=== PATIENT | male | born 1965 | race Caucasian/White ===

== ENCOUNTER 2018-10-10 10:28 | Observation (INO) ==
[2018-10-10 11:11] LABS: Basophils # 0.1 K/mcL (0.0-0.2); Basophils % 1.3 %; Eosinophils # 0.2 K/mcL (0.0-0.6); Eosinophils % 3.3 %; Hematocrit 46.5 % (37.5-50.1); Hemoglobin 16.1 g/dL (12.9-16.9); Immature Granulocytes % 0.7 % (0-4); Lymphocytes # 1.4 K/mcL (0.6-4.6); Lymphocytes % 23.8 %; Mean Corpuscular HGB Conc 34.6 g/dL (31.6-35.5); Mean Corpuscular Hemoglobin 30.5 pg (28.0-33.3); Mean Corpuscular Volume 88.1 fL (83.0-100.0); Mean Platelet Volume 10.6 fL (9.4-12.4); Monocytes # 0.8 K/mcL (0.0-1.3); Monocytes % 12.7 %; Neutrophils # 3.5 K/mcL (1.6-8.9); Platelet Count 212 K/mcL (140-400); Red Blood Count 5.28 M/mcL (4.19-5.50); Red Cell Distribution Width 12.2 % (11.5-14.5); Segmented Neutrophils % 58.2 %
[2018-10-10 11:18] LABS: INR 2.4; Prothrombin Time 26.5 Seconds (9.4-12.1)
--- NOTE | 2018-10-10 11:27 | Emergency Department Note ---
Disposition Clinical Impression: Atrial fibrillation with RVR Chest pain Qualifiers: Chest pain type: unspecified Qualified Code(s): R07.9 - Chest pain, unspecified Disposition: Admitted As Inpatient Condition: Fair Referrals: Sebastian Ochoa DO [Primary Care Provider] - Forms: ED Satisfaction Letter Time of Disposition: 13:09 Chest Pain HPI - General Chief Complaint: ED Chest Pain Stated Complaint: chest pain Time Seen by Provider: 10/10/18 10:35 Source: patient, family Mode of arrival: ambulatory Limitations: no limitations Vital Signs Reviewed: Yes Nursing Notes Reviewed: Yes - History of Present Illness HPI Narrative: 53-year-old male with a history of A. fib, CAD on Eliquis present for evaluation of chest pain. Patient states chest pains or last night nonexertional with retrosternal discomfort. Patient denies any nausea vomiting. Patient states the patient has been short of breath as well as sweating. Patient denies any fevers or cough. Denies abdominal pain. Does have a history of pacemaker defibrillator in the past which was removed due to an infectious device at [facility]. Severity scale (1-10): 6 - Related Data Home Medications Medication Instructions Recorded Confirmed Buspirone HCl [Buspar] 10 mg PO BID 11/06/17 10/10/18 Digoxin [Lanoxin] 0.125 mg PO DAILY 11/06/17 10/10/18 Finasteride [Proscar] 5 mg PO DAILY 11/06/17 10/10/18 Fluticasone Propionate Nasal 2 spr NS BID 11/06/17 10/10/18 [Flonase] Lisinopril [Zestril] 5 mg PO DAILY 11/06/17 10/10/18 Nitroglycerin [Nitrostat] 0.4 mg SL Q5M PRN 11/06/17 10/10/18 Oxycodone HCl 15 mg PO Q6H 11/06/17 10/10/18 Phenytoin ER [Dilantin ER] 200 mg PO DAILY 11/06/17 10/10/18 Tamsulosin [Flomax] 0.4 mg PO DAILY 11/06/17 10/10/18 Triamcinolone Acet 0.1% CRM 1 appl TP QID 11/06/17 10/10/18 [Kenalog] Warfarin [Coumadin] 5 mg PO 1800 11/06/17 10/10/18 Pravastatin Sodium [Pravachol] 40 mg PO HS 01/05/18 10/10/18 Bumetanide [Bumex] 1 mg PO 3XW 02/03/18 10/10/18 Phenytoin Sodium Extended 300 mg PO HS 02/03/18 10/10/18 [Phenytek] Previous Rx's Medication Instructions Recorded Divalproex (12 HR) [Depakote (12 1,000 mg PO HS #30 tablet. 01/07/18 HR)] Divalproex (12 HR) [Depakote (12 500 mg PO QAM #30 tablet. 01/07/18 HR)] Allergies Allergy/AdvReac Type Severity Reaction Status Date / Time No Known Allergies Allergy Verified 03/10/18 16:50 All systems ED: reviewed and negative except as stated. Constitutional: Denies: fever Cardiovascular: Reports: chest pain, palpitations Respiratory: Reports: dyspnea. Denies: cough, sputum production Gastrointestinal: Denies: abdominal pain, nausea, vomiting Chest Pain PMH - Past Medical History Medical history: Reports: atrial fibrillation, cancer, CHF, hypertension, myocardial infarction, RA, seizures, TIA Surgical history: Reports: pacemaker/AICD, other Psychiatric history: Reports: depression - Social History Smoking Status: Former smoker Alcohol use: Reports: none Drug use: Reports: none Physical Exam - General Limitations: no limitations General appearance: alert, in no apparent distress - Head Head exam: atraumatic, normocephalic, normal inspection - Eye Eye exam: Present: normal appearance, PERRL, EOMI - ENT ENT exam: normal exam, normal oropharynx, mucous membranes moist - Neck Neck exam: Present: normal inspection, trachea midline - Chest Chest inspection: Present: normal inspection, symmetric chest wall rise - Respiratory Respiratory exam: Present: normal lung sounds bilaterally. Absent: respiratory distress - Cardiovascular Cardiovascular exam: Present: regular rate, normal rhythm. Absent: systolic murmur - Abdominal Exam Abdominal exam: Present: soft, Non-Tender - Extremities Exam Extremities exam: Present: normal inspection. Absent: pedal edema - Expanded Lower Extremity Exam Neurovascular/Tendon exam: Present: normal capillary refill - Back Exam Back exam: Present: normal inspection - Neurological Exam Neurological exam: Present: alert, oriented X3 - Skin Skin exam: Present: warm, dry, intact, normal color Course Course Narrative: Patient seen and examined upon arrival. Patient was noted be in A. fib RVR playing a chest pain. Patient does have known A. fib. Patient's properly anticoagulated per his history. Patient will get continuing cardiopulmonary evaluation with basic labs. Patient is on digoxin and dig levels be obtained. Disposition likely admission - Reevaluation(s) Reevaluation #1: Patient is complaining of chest heaviness. Will get a repeat EKG that her trial. Patient will be rate controlled with diltiazem bolus and then a drip. Time: 12:12 Reevaluation #2: Repeat EKG shows A. fib with a heart rate of 80. No ST elevation. Normal axis. T-wave inversions in aVL. LVH Time: 12:29 Reevaluation #3: Patient's resting comfortably. Updated on plan of care. Patient's on diltiazem drip at 5. Patient did have some labile pressures early on. Patient appears be resting more comfortably. Time: 12:36 Vital Signs Temperature 98.7 F 10/10/18 10:38 Pulse Rate 115 10/10/18 10:38 Respiratory Rate 20 10/10/18 10:38 Blood Pressure 136/77 10/10/18 10:38 O2 Sat by Pulse Oximetry 100 10/10/18 10:38 Temperature 98.7 F 10/10/18 10:38 Pulse Rate 83 10/10/18 12:32 Respiratory Rate 18 10/10/18 12:32 Blood Pressure 93/65 10/10/18 12:32 O2 Sat by Pulse Oximetry 94 10/10/18 12:32 Oxygen Delivery Oxygen Delivery Room Air Chest Pain - [facility] Narrative Medical decision making narrative: 53-year-old male with history of CAD presents for evaluation of chest pain. Patient does have known A. fib. Patient has been compliant with his medications. No chest pain over the past 24 hours. On exam the patient had A. fib RVR. Patient was given diltiazem placed on a drip. Patient's heart rate improved her the patient remained in A. fib. Patient was also given aspirin and nitroglycerin given his chest pain which did not significantly improve his symptoms. Patient did have some labile blood pressure during the ED course but is been stable. Patient's resting comfortably. Given the patient's abnormal presentation of chest pain as well as A. fib RVR the patient will be admitted to the hospital service for continued rate control cardiopulmonary management. Patient's symptoms are not consistent with a PE or dissection. - Lab Data Lab results reviewed: Yes I reviewed the patient's lab results. Result diagrams: 10/10/18 10:57 10/10/18 10:57 Lab Results 10/10/18 10/10/18 10/10/18 Range/Units 10:57 10:57 10:57 WBC 6.1 (4.3-11.1) K/mcL RBC 5.28 (4.19-5.50) M/mcL Hgb 16.1 (12.9-16.9) g/dL Hct 46.5 (37.5-50.1) % MCV 88.1 (83.0-100.0) fL MCH 30.5 (28.0-33.3) pg MCHC 34.6 (31.6-35.5) g/dL RDW 12.2 (11.5-14.5) % Plt Count 212 (140-400) K/mcL MPV 10.6 (9.4-12.4) fL Immature Gran % 0.7 (0-4) % Seg Neutrophils % 58.2 % Lymphocytes % 23.8 % Monocytes % 12.7 % Eosinophils % 3.3 % Basophils % 1.3 % Neutrophils # 3.5 (1.6-8.9) K/mcL Lymphocytes # 1.4 (0.6-4.6) K/mcL Monocytes # 0.8 (0.0-1.3) K/mcL Eosinophils # 0.2 (0.0-0.6) K/mcL Basophils # 0.1 (0.0-0.2) K/mcL PT 26.5 H (9.4-12.1) Seconds INR 2.4 Sodium 137 (136-145) mEq/L Potassium 4.2 (3.5-5.1) mEq/L Chloride 102 (98-107) mEq/L Carbon Dioxide 27 (23-29) mEq/L BUN 14 (6-20) mg/dL Creatinine 0.95 (0.70-1.30) mg/dL Est GFR ( Amer) > 60 (> 60) Est GFR (Non-Af Amer) > 60 (> 60) BUN/Creatinine Ratio 15 (6-26) Glucose 127 H (70-105) mg/dL Calculated Osmolality 286 (280-300) Calcium 9.8 (8.6-10.3) mg/dL Troponin I < 0.03 (< 0.04) ng/mL TSH 0.917 (0.340-5.600) mcIU/mL Digoxin 0.6 L (0.8-2.0) ng/mL - Radiology Data Radiology results reviewed: Yes I reviewed the patient's radiology results. Chest X-Ray 10/10/18 10:35 IMPRESSION: No acute process. D/ / 10/10/2018 12:16:13 Max Mckenzie MD / kristofer Interpreting Provider: Max Mckenzie MD - EKG Data EKG attestation: Yes I reviewed and interpreted this EKG. Rate: tachycardia Rhythm: A.Fib [place]/QRS: normal Interpretation: no acute changes, unchanged when compared to prior tracing (date) Heart Score - Score History: Moderately Suspicious EKG: Non Specific repolarisation Disturbance Age: 45-65 Risk Factors: Equal/Greater than 3 risk factor or history of atherosclerotic disease Troponin: Less than normal limit HEART Score Total: 5 S.B.A.RRaquel - Rosibel Situation: Demographics Background: Presenting Complaint Assessment: Vital Signs, Course and respsone to treatment, Patient/Family Expectation Recommendation: Barrier(s) to disposition, Recommendation based on pending studies, treatments, or consults S.B.AIla Report Given to: Dr. Salma Gleason Repor Time: 13:09
--- NOTE | 2018-10-10 11:28 | Emergency Department Note ---
Disposition Clinical Impression: Chest pain, Atrial fibrillation with RVR Disposition: Admitted As Inpatient Condition: Fair Referrals: Sebastian Ochoa DO [Primary Care Provider] - Forms: ED Satisfaction Letter General Adult HPI - General Chief complaint: ED Chest Pain Stated complaint: chest pain Time Seen by Provider: 10/10/18 10:35 Source: patient, family Limitations: no limitations Nursing Notes Reviewed: Yes Vital Signs Reviewed: Yes - History of Present Illness Pain Scale: 6 - Related Data Home Medications Medication Instructions Recorded Confirmed Buspirone HCl [Buspar] 10 mg PO BID 11/06/17 10/10/18 Digoxin [Lanoxin] 0.125 mg PO DAILY 11/06/17 10/10/18 Finasteride [Proscar] 5 mg PO DAILY 11/06/17 10/10/18 Fluticasone Propionate Nasal 2 spr NS BID 11/06/17 10/10/18 [Flonase] Lisinopril [Zestril] 5 mg PO DAILY 11/06/17 10/10/18 Nitroglycerin [Nitrostat] 0.4 mg SL Q5M PRN 11/06/17 10/10/18 Oxycodone HCl 15 mg PO Q6H 11/06/17 10/10/18 Phenytoin ER [Dilantin ER] 200 mg PO DAILY 11/06/17 10/10/18 Tamsulosin [Flomax] 0.4 mg PO DAILY 11/06/17 10/10/18 Triamcinolone Acet 0.1% CRM 1 appl TP QID 11/06/17 10/10/18 [Kenalog] Warfarin [Coumadin] 5 mg PO 1800 11/06/17 10/10/18 Pravastatin Sodium [Pravachol] 40 mg PO HS 01/05/18 10/10/18 Bumetanide [Bumex] 1 mg PO 3XW 02/03/18 10/10/18 Phenytoin Sodium Extended 300 mg PO HS 02/03/18 10/10/18 [Phenytek] Previous Rx's Medication Instructions Recorded Divalproex (12 HR) [Depakote (12 1,000 mg PO HS #30 tablet. 01/07/18 HR)] Divalproex (12 HR) [Depakote (12 500 mg PO QAM #30 tablet. 01/07/18 HR)] Allergies Allergy/AdvReac Type Severity Reaction Status Date / Time No Known Allergies Allergy Verified 03/10/18 16:50 Past Medical History - Past Medical History Medical history: Reports: atrial fibrillation, cancer, CHF, hypertension, myocardial infarction, RA, seizures, TIA Surgical history: Reports: pacemaker/AICD, other Psychiatric history: Reports: depression - Social History Smoking Status: Former smoker Smokeless Tobacco Status: No Alcohol use: Reports: none Drug use: Reports: none Physical Exam - General Limitations: no limitations General appearance: alert, in no apparent distress Course Vital Signs Temperature 98.7 F 10/10/18 10:38 Pulse Rate 115 10/10/18 10:38 Respiratory Rate 20 10/10/18 10:38 Blood Pressure 136/77 10/10/18 10:38 O2 Sat by Pulse Oximetry 100 10/10/18 10:38 Temperature 98.7 F 10/10/18 10:38 Pulse Rate 83 10/10/18 12:32 Respiratory Rate 18 10/10/18 12:32 Blood Pressure 93/65 10/10/18 12:32 O2 Sat by Pulse Oximetry 94 10/10/18 12:32 Oxygen Delivery Oxygen Delivery Room Air Medical Decision Making - MDM Narrative Medical decision making narrative: Chest X-Ray 10/10/18 10:35 IMPRESSION: No acute process. D/ / 10/10/2018 12:16:13 Max Mckenzie MD / kristofer Interpreting Provider: Max Mckenzie MD 1220 hrs.: Patient's currently getting Cardizem. He started having chest pressure and that occurred. He did not drop his heart rate or his blood pressure. We gave him repeat EKG no signs of ischemia. Heart rates down the 90s now's. We will speak with cardiology with him and rule him out for ACS also. He will need to come in regardless with the A. fib RVR. 1252 hrs.: Patient's heart rates in the 90s he is doing better at this time. Troponins negative for going to admitted to hospitalist service. He is in agreement with plan. A. fib with RVR improved with Cardizem and chest pain rule out ACS. - Lab Data Result diagrams: 10/10/18 10:57 10/10/18 10:57 Lab Results 10/10/18 10/10/18 10/10/18 Range/Units 10:57 10:57 10:57 WBC 6.1 (4.3-11.1) K/mcL RBC 5.28 (4.19-5.50) M/mcL Hgb 16.1 (12.9-16.9) g/dL Hct 46.5 (37.5-50.1) % MCV 88.1 (83.0-100.0) fL MCH 30.5 (28.0-33.3) pg MCHC 34.6 (31.6-35.5) g/dL RDW 12.2 (11.5-14.5) % Plt Count 212 (140-400) K/mcL MPV 10.6 (9.4-12.4) fL Immature Gran % 0.7 (0-4) % Seg Neutrophils % 58.2 % Lymphocytes % 23.8 % Monocytes % 12.7 % Eosinophils % 3.3 % Basophils % 1.3 % Neutrophils # 3.5 (1.6-8.9) K/mcL Lymphocytes # 1.4 (0.6-4.6) K/mcL Monocytes # 0.8 (0.0-1.3) K/mcL Eosinophils # 0.2 (0.0-0.6) K/mcL Basophils # 0.1 (0.0-0.2) K/mcL PT 26.5 H (9.4-12.1) Seconds INR 2.4 Sodium 137 (136-145) mEq/L Potassium 4.2 (3.5-5.1) mEq/L Chloride 102 (98-107) mEq/L Carbon Dioxide 27 (23-29) mEq/L BUN 14 (6-20) mg/dL Creatinine 0.95 (0.70-1.30) mg/dL Est GFR ( Amer) > 60 (> 60) Est GFR (Non-Af Amer) > 60 (> 60) BUN/Creatinine Ratio 15 (6-26) Glucose 127 H (70-105) mg/dL Calculated Osmolality 286 (280-300) Calcium 9.8 (8.6-10.3) mg/dL Troponin I < 0.03 (< 0.04) ng/mL TSH 0.917 (0.340-5.600) mcIU/mL Digoxin 0.6 L (0.8-2.0) ng/mL Critical Care Time Critical Care Time: Yes Total Critical Care Time: 40 Attestation: Excluding any separately billable procedures. Attestation Statement - Attestation Attestation: This documentation is done with the assistance of Dragon dictation. Despite efforts made to ensure accuracy, there may be inaccuracies in blanchard grinder operator or spelling and typographical errors. I examined this patient and my medical decision-making was reviewed with the Resident Physician. I agree with the documented findings, disposition and treatment plan as described except to the extent set forth below. Patient seen and evaluated on arrival by Dr. Parkinson and myself, agree with her evaluation management plan supervised the care the patient's stay. Patient's a history of atrial fibrillation came in today with rapid heart beat this note on today. On monitor shows an atrial fibrillation again. He is currently on did she is not on a calcium channel polo beta polo so we will go ahead and start that today to workup and then discuss admission with him. He is in agreement with plan.
[2018-10-10] MEDS: Nitroglycerin 0.4 MG TAB.SUBL SL PRN ×2 (11:54→11:59)
[2018-10-10] MEDS: 0.9 % Sodium Chloride 1,000 ML IVC SCH ×2 (11:55→16:39)
[2018-10-10 11:56] LABS: BUN/Creatinine Ratio 15 (6-26); Blood Urea Nitrogen 14 mg/dL (6-20); Calcium 9.8 mg/dL (8.6-10.3); Carbon Dioxide 27 mEq/L (23-29); Chloride 102 mEq/L (98-107); Glucose 127 mg/dL (70-105); Osmolality,Calculated 286 (280-300); Potassium 4.2 mEq/L (3.5-5.1); Sodium 137 mEq/L (136-145); eGFR For Non-African Americans > 60 (> 60)
[2018-10-10 11:57] LABS: Thyroid Stimulating Hormone 0.917 mcIU/mL (0.340-5.600); Troponin I < 0.03 ng/mL (< 0.04)
[2018-10-10] MEDS ORDERED: Ondansetron 4 MG/2 ML VIAL ONE (12:09)
[2018-10-10 12:27] LABS: Digoxin 0.6 ng/mL (0.8-2.0)
[2018-10-10] MEDS ORDERED: 0.9 % Sodium Chloride 1,000 ML IVC ONE (12:28)
--- NOTE | 2018-10-10 16:12 | Internal Med History&Physical ---
Date of Encounter: 10/10/18 Time of Encounter: 16:00 Internal Medicine - H&P: HPI Chief complaint: chest pain Admitted From: Emergency Dept Plans for Post Hospital Care: Home History of present illness: Mr. Welch is a 53 year old male with history of A. fib, CAD, currently takes Eliquis at home. Home medications also include digoxin. And dig levels was completed in the emergency room and found to be low at 0.6. Gives history of having a pacemaker defibrillator removed earlier this year due to nonfunctioning at [facility]. States that they placed a defibrillator into the left lateral chest wall. He reports frequent episodes of A. fib and palpitations since having the defibrillator pacemaker removed. He gives a history of acute onset of chest pain that he described as mid chest pressure. Associated symptoms was nausea without vomiting dizziness, weakness. . States that the pressure and heaviness. At 2 AM, it was a sharp pain at that time nonradiating lasting 3-4 minutes. States he also had a recurrent chest pain and pressure at 3:30 AM that both dull in nature aching, and a third episode at 4:30 this morning, that was all an aching states that last episode was in the emergency room. Upon arrival to ED EKG was positive for A. fib with RVR, he was started on a Cardizem drip at 5 mg per hour. Second EKG was elevaluted in ED and shows A. Fiv with HR of 80, NO ST elevation, Normal azis, T-wave invrsions in aVL. LVH. Troponin was negative x 1 CXR negative for acute process Patient is interview in hospital room, resting quietly and talking with family. He denies chest pain, N/V, shortness of breath, dizziness, headache, or other discomforts at this time. Patient continues at the present time to have A. fib. per telemetry, Review of VS reveals hypotension with b/p trending down to current rate of 93/61, with 64 pulse. Spo2 @RA 96 %. -. will give one time dose of Cardizem po 30 mg , -repeat vs, in 1 hour, and attempt to wean off Cardizem drip. -If successful will give po cardiazem 30 mg q8h. Patient is admitted to observation unit -continue with telemetry, -vs q4 h -Cardiology consult - NTG 0,4 sl prn - NS 0.9% IV NS @ 125 ml /hr continuously -Trend toponin x 3 -Obtain daily labs, and monitor CMP, CBC, - Heparin SQ bid DVT prophylaxis -oxygen for SPO2 < 95 % @2 lpm/nc Past Med Surg Social Fam HX - Past Medical History Medical history: atrial fibrillation, cancer, CHF, hypertension, myocardial infarction, RA, seizures, TIA Additional medical history: ICD, (cancerious polyps) Psychiatric history: depression - Past Surgical History Surgical History: pacemaker/AICD, other Additional surgical history: colonoscopy 10/2017 w/ polyp removal, abdominal cyst removal, thoracotomy, pericardial window, septal repair, tonsillectomy - Social History Smoking Status: Former smoker Smokeless Tobacco Status: No Alcohol use: none Drug use: none - Family History Father Hx Family Cardiac Disorders: Yes Hx Family Cancer: Yes Mother Hx Family Cancer: Yes Brother Living Status: Hx Family Cardiac Disorders: Yes ([place]) Internal Medicine - H&P: Meds Buspirone HCl [Buspar] 10 mg PO BID 11/06/17 [History] Digoxin [Lanoxin] 0.125 mg PO DAILY 11/06/17 [History] Finasteride [Proscar] 5 mg PO DAILY 11/06/17 [History] Fluticasone Propionate Nasal [Flonase] 2 spr NS BID 11/06/17 [History] Lisinopril [Zestril] 5 mg PO DAILY 11/06/17 [History] Nitroglycerin [Nitrostat] 0.4 mg SL Q5M PRN 11/06/17 [History] Oxycodone HCl 15 mg PO Q6H 11/06/17 [History] Phenytoin ER [Dilantin ER] 200 mg PO DAILY 11/06/17 [History] Tamsulosin [Flomax] 0.4 mg PO DAILY 11/06/17 [History] Triamcinolone Acet 0.1% CRM [Kenalog] 1 appl TP QID 11/06/17 [History] Warfarin [Coumadin] 5 mg PO 1800 11/06/17 [History] Pravastatin Sodium [Pravachol] 40 mg PO HS 01/05/18 [History] Divalproex (12 HR) [Depakote (12 HR)] 1,000 mg PO HS #30 tablet. 01/07/18 [Rx] Divalproex (12 HR) [Depakote (12 HR)] 500 mg PO QAM #30 tablet. 01/07/18 [Rx] Bumetanide [Bumex] 1 mg PO 3XW 02/03/18 [History] Phenytoin Sodium Extended [Phenytek] 300 mg PO HS 02/03/18 [History] Allergy/AdvReac Type Severity Reaction Status Date / Time No Known Allergies Allergy Verified 03/10/18 16:50 All Systems PM: A 10-system review of systems was performed and is negative for pertinent findings except as documented above in the HPI. Review of systems: denies chest pain , shortness of breath, N/V, dizziness - Constitutional Constitutional: as per HPI - EENT Eyes: as per HPI - Cardiovascular Cardiovascular ROS IM: irregular heart rhythm, palpitations - Respiratory Respiratory: no cough, no dyspnea, no wheezing, no excessive phlegm production - Gastrointestinal Gastrointestinal: no abdominal pain, no diarrhea, no hematemesis, no hematochezia, no melena, no nausea, no vomiting - Genitourinary Genitourinary ROS male: as per HPI - Musculoskeletal Musculoskeletal ROS IM: no numbness, no tingling - Integumentary Integumentary IM: no rash, no unusual bruising Additional comments: has implanted defibrillator left lateral rib area , box like, approx 3 inches in length, x 2 inches wide , tender with palp - Neurological Neurological ROS: no confusion, no convulsions, no focal weakness, no numbness, no tingling, no tremor(s) - Psychiatric Psychiatric: as per HPI - Endocrine Endocrine IM: as per HPI - Hematologic/Lymphatic Hematologic/Lymphatic: no easy bruising - Allergic/Immunologic Allergic/Immunologic: as per HPI - Constitutional Vitals: Temp Pulse Resp BP Pulse Ox 98.1 F 64 18 93/61 96 10/10/18 14:53 10/10/18 14:53 10/10/18 14:53 10/10/18 14:53 10/10/18 14:53 Exam: mild hypotension with b/p 93/61, pulse 64, irregular, Telemetry continues with A. Fib one time Cardizem 30 mg recheck in 1 hour May attempt to wean off Cardizem drip start on Cardizem 30 mg q8h po - Head Head exam: Present: atraumatic, normal inspection, normocephalic - Eye Eye exam: Present: PERRL, conjuntiva pink, sclera anicteric Pupils: Present: PERRL - Neck Neck exam general surgery: Present: supple, trachea midline. Absent: lymphadenopathy - Respiratory Respiratory exam: Present: CTAB. Absent: accessory muscle use, rales, rhonchi, wheezes - Cardiovascular Cardiovascular exam: Present: bradycardia, irregular rhythm, RRR, +S1, +S2. Absent: diastolic murmur, gallop, rubs, systolic murmur Additional comments: irregular regular rhythm - GI/Abdominal GI/Abdominal exam: Present: normal bowel sounds, soft, no peritoneal signs. Absent: distended, tenderness - Extremities Exam Extremities exam: Present: warm, radial pulses palpable and symmetrical. A bsent: calf tenderness, cyanotic, pedal edema - Neurological Exam Neurological exam: Present: alert, CN II-XII intact, normal gait, oriented X3, reflexes normal, no focal deficits. Absent: pronater drift, facial droop, speech deficit - Skin Skin exam: Present: dry, intact Additional comments: small defebulator located lateral left mid rib area Internal Med - H&P Results - Labs CBC & Chem 7: 10/10/18 10:57 10/10/18 10:57 Labs: Short CBC 10/10/18 Range/Units 10:57 WBC 6.1 (4.3-11.1) K/mcL Hgb 16.1 (12.9-16.9) g/dL Hct 46.5 (37.5-50.1) % Plt Count 212 (140-400) K/mcL Neutrophils # 3.5 (1.6-8.9) K/mcL BMP 10/10/18 10:57 Sodium 137 Potassium 4.2 Chloride 102 Carbon Dioxide 27 BUN 14 Creatinine 0.95 Glucose 127 H Calcium 9.8 Cardiac Enzymes 10/10/18 Range/Units 10:57 Troponin I < 0.03 (< 0.04) ng/mL - Pulse Oximetry Interpretation Digit-Finger O2 Sat by Pulse Oximetry: 96 Actions taken: none - Impressions ITS Impressions Chest X-Ray 10/10/18 10:35 IMPRESSION: No acute process. D/ / 10/10/2018 12:16:13 Max Mckenzie MD / kristofer Interpreting Provider: Max Mckenzie MD - Assessment and plan (1) Chest pain Current Visit: Yes Status: Acute Assessment and plan: Patient gives a history of pain and "colon at 2 AM this past night with midsternal chest pressure and heaviness nonradiating, stated last 3-4 minutes sharp in nature. Rated symptoms was nausea without vomiting, dizziness, weakness. He further stated that he had 2 more episodes of the same type of rome n lasting approximately 3-4 minutes however the second and third episodes were Edinson achy in nature as well as heavy midsternal, this occurred at 3:30 AM and 4:30 AM Admitted to observation unit chest pain rule out ACS Serial troponins 2 Obtain CMP, CBC daily Continue pta vital signs every 4 hours 24 hours up ad gurinder. Cardiac diet Continue home medications DVT prophylaxis with heparin 5000 units every 12 hours subcutaneous Maintain IV site with 0.9% sodium IV at her 25 MLS/HR Attempt to wean off dilatation exam drip due to hypotension Give 30 mg by mouth 1 cardiac exam, repeat vital signs in one hour if possible wean off the cardiac exam drip and start cardiac exam by mouth 30 mg every 8 hour Cardiology consult . Qualifiers: Chest pain type: precordial pain Qualified Code(s): R07.2 - Precordial pain (2) Atrial fibrillation with RVR Current Visit: Yes Status: Acute Assessment and plan: Patient states that he has history of atrial fib and at one point had a implantable defibrillator pacemaker however this was moved due to infection at [facility] earlier this year. States now he has a defibrillator only in place and since that time he has had palpitations with occasional chest pain. EKG upon admission to the emergency room did show A. fib with RVR, he was started on cardiac exam drip at 5 mg/h. He was noted to have hypotension when he was assessed on the observation floor. One-time dose of cardiac exam by mouth 30 mg was given repeat vital signs and one hour O temp wean off the cardia see him drip, start on 30 mg of the cardia see him by mouth every 8 hour. We will continue to monitor telemetry continuously and vital signs every 4 hour, we will trend serial troponins and cardiac consult, obtain 2 d echo , and cardiac stress test (3) DVT prophylaxis Current Visit: Yes Status: Acute Assessment and plan: Per protocol patient is up ad gurinder. in the hallway, and in the room. Heparin subcutaneous 5000 units every 12 hours, and will give BEN was - Time Spent With Patient Total time spent is greater than 50% in coordination of care (as documented) at patient's floor/unit and/or counseling patient: less than 15 minutes
[2018-10-10] MEDS ORDERED: *HR* Heparin 5,000 UNIT/ML VIAL SQ SCH (18:00)
[2018-10-10] MEDS: Divalproex (12 HR) 500 MG TABLET PO SCH (20:26)
[2018-10-10] MEDS ORDERED: NON-FORMULARY MEDICATION 1 EACH EACH (Buspirone Hcl [Buspar] 10 MG) PO SCH (21:00)
[2018-10-10] MEDS ORDERED: *HR* OxyCODONE Immed Rel 15 MG TABLET PO ONE (23:16)
[2018-10-11] MEDS: 0.9 % Sodium Chloride 1,000 ML IVC SCH ×2 (00:57→08:17)
[2018-10-11 04:21] LABS: Basophils # 0.1 K/mcL (0.0-0.2); Basophils % 1.2 %; Eosinophils # 0.2 K/mcL (0.0-0.6); Eosinophils % 2.7 %; Immature Granulocytes % 0.8 % (0-4); Lymphocytes # 2.2 K/mcL (0.6-4.6); Lymphocytes % 37.3 %; Mean Corpuscular HGB Conc 34.7 g/dL (31.6-35.5); Mean Corpuscular Hemoglobin 30.4 pg (28.0-33.3); Mean Corpuscular Volume 87.6 fL (83.0-100.0); Mean Platelet Volume 10.7 fL (9.4-12.4); Monocytes # 0.6 K/mcL (0.0-1.3); Monocytes % 10.4 %; Neutrophils # 2.8 K/mcL (1.6-8.9); Platelet Count 156 K/mcL (140-400); Red Blood Count 4.34 M/mcL (4.19-5.50); Red Cell Distribution Width 12.5 % (11.5-14.5); Segmented Neutrophils % 47.6 %
[2018-10-11 04:36] LABS: Hemoglobin 13.2 g/dL (12.9-16.9)
[2018-10-11 04:38] LABS: BUN/Creatinine Ratio 19 (6-26); Blood Urea Nitrogen 16 mg/dL (6-20); Calcium 8.5 mg/dL (8.6-10.3); Carbon Dioxide 25 mEq/L (23-29); Chloride 107 mEq/L (98-107); Glucose 111 mg/dL (70-105); Osmolality,Calculated 290 (280-300); Potassium 4.2 mEq/L (3.5-5.1); Sodium 139 mEq/L (136-145); eGFR For Non-African Americans > 60 (> 60)
[2018-10-11] MEDS: levETIRAcetam 250 MG TABLET PO SCH ×2 (05:02→17:31)
[2018-10-11] MEDS: Finasteride 5 MG TABLET PO SCH (08:07)
[2018-10-11] MEDS: Divalproex (12 HR) 500 MG TABLET PO SCH ×2 (08:08→21:42)
[2018-10-11] MEDS ORDERED: *HR* Digoxin 0.125 MG TABLET PO SCH ×2 (09:00)
[2018-10-11 09:41] LABS: INR 3.1; Prothrombin Time 35.4 Seconds (9.4-12.1)
--- NOTE | 2018-10-11 12:12 | Internal Med Progress Note ---
<Miguel Ortiz - Last Filed: 10/11/18 11:57> Hospitalist Progress Note - Encounter Date of Encounter: 10/11/18 Time of Encounter: 11:57 - Subjective Interval History: 52-year-old male admitted for chest pain. Patient was found to have been in A. fib RVR and started on Cardizem drip which has not been transition to by mouth Cardizem. Patient also reported that his chest pain resolved once A. fib RVR has resolved. Currently he denies shortness of breath, bowel pain, lower extremity edema. - Exam Vitals: Temp Pulse Resp BP Pulse Ox 98.5 F 63 16 128/76 98 10/11/18 11:44 10/11/18 11:44 10/11/18 11:44 10/11/18 11:44 10/11/18 11:44 Exam: General: pleasant, without distress Cardiovascualr: Regular rate and rhythm with no murmur, absent gallops or rubs, absent pedal edema, radial pulses 2 out of 4 Lungs: Clear to auscultation bilaterally, not in respiratory distress Abdomen: Soft nontender, nondistended positive bowel sounds, absent hepatomegaly Skin: warm and dry, absent rash, absent open wounds and nodules MSK: absent clubbing, cyanosis, joints without swelling Neuro: Alert oriented 3 Psych: good insight and judgment - Assessment and Plan (1) Chest pain Current Visit: Yes Status: Resolved Assessment and Plan: Patient had atypical chest pain Discharge report this is similar to his previous chest pain when he had ACS This was in the setting of A. fib RVR Chest pain resolved after A. fib RVR resolved. Troponin are negative 2 Echocardiogram shows LVEF of 50% with low normal systolic function, mild concentric left ventricular hypertrophy, normal left ventricular diastolic function, and we will right ventricular structure and function, no significant valve dysfunction, no pulmonary hypertension. Chest x-ray is negative EKG on admission showed atrial fibrillation with RVR without ST elevation or depression, LVH. Patient is also on warfarin therapeutic at INR of 2.1 Plan: Continue warfarin, statin, fenofibrate, coreg. stop diltiazem. Cardiology was consulted and appreciate recommendations. (2) DVT prophylaxis Current Visit: Yes Status: Acute Assessment and Plan: warfarin (3) Atrial fibrillation with RVR Current Visit: Yes Status: Resolved Assessment and Plan: now in Sinus rhythm continue coreg and warfarin (4) HTN (hypertension) Current Visit: Yes Status: Chronic Assessment and Plan: controlled continue lisinopril (5) Systolic CHF Current Visit: Yes Status: Chronic Assessment and Plan: History of systolic congestive heart failure Patient is not an exacerbation We will continue lisinopril, Bumex, digoxin. (6) History of seizure Current Visit: Yes Status: Chronic Assessment and Plan: Patient has a history of seizures We will continue Keppra and Depakote. (7) Nonischemic cardiomyopathy Current Visit: Yes Status: Chronic Assessment and Plan: Patient has history of nonischemic cardiomyopathy unclear etiology Reviewed ECW Patient has COMPUTER PROGRAMMER CHIEF-D removed due to infection and has a AICD placed on the left lateral chest wall. He is euvolemic and will continue statin, beta polo, lisinopril, Bumex. - Time Spent with Patient Total time spent is greater than 50% in coordination of care (as documented) at patient's floor/unit and/or counseling patient: Internal Medicine: Result - Labs CBC & Chem 7: 10/11/18 03:56 10/11/18 03:56 Labs: Short CBC 10/11/18 Range/Units 03:56 WBC 6.0 (4.3-11.1) K/mcL Hgb 13.2 D (12.9-16.9) g/dL Hct 38.0 (37.5-50.1) % Plt Count 156 (140-400) K/mcL Neutrophils # 2.8 (1.6-8.9) K/mcL BMP 10/10/18 10/11/18 10:57 03:56 Sodium 137 139 Potassium 4.2 4.2 Chloride 102 107 Carbon Dioxide 27 25 BUN 14 16 Creatinine 0.95 0.86 Glucose 127 H 111 H Calcium 9.8 8.5 L Cardiac Enzymes 10/10/18 10/10/18 Range/Units 10:57 17:36 Troponin I < 0.03 < 0.03 (< 0.04) ng/mL - ABG Interpretation ABG results: PT/INR, D-dimer PT 35.4 Seconds (9.4-12.1) H 10/11/18 09:21 - Impressions Impressions Chest X-Ray 10/10/18 10:35 IMPRESSION: No acute process. D/ / 10/10/2018 12:16:13 Max Mckenzie MD / kristofer Interpreting Provider: Max Mckenzie MD Echocardiogram 10/11/18 09:00 Impressions: LVEF 50%. Low normal systolic function. Mild concentric left ventricular hypertrophy. Normal left ventricular diastolic function. Normal right ventricular structure and function. No significant valvular dysfunction. No pulmonary hypertension. Left Ventricular Wall Motion: Rest Echo Findings All wall segments showed normal motion. Findings: Study Quality * Technically adequate exam. ECG Findings * Normal sinus rhythm. Left Ventricle * LVEF 50%. Low normal systolic function. * Normal LV chamber size and function. * Mild concentric left ventricular hypertrophy. * Normal left ventricular diastolic function. Right Ventricle * Normal right ventricular structure and function. Left Atrium * Normal left atrial size. Right Atrium * Normal right atrial size. Interatrial Septum * Interatrial septum not well evaluated. * No evidence of PFO by color Doppler. Aortic Valve * Aortic valve not well visualized. * No aortic stenosis. * No aortic regurgitation. Mitral Valve * Normal mitral valve structure. * No mitral stenosis. * Trace mitral regurgitation. Tricuspid Valve * Normal tricuspid valve structure. * No tricuspid stenosis. * Trace tricuspid regurgitation. * Estimated RVSP is 28 mmHg. * Estimated RA pressure is 3 mmHg. * No pulmonary hypertension. Pulmonic Valve * Pulmonic valve is not well visualized. * No pulmonic stenosis. * No pulmonic regurgitation. Aorta * Normally sized aortic root. Pericardium * The pericardium appears normal. IVC * Normal IVC dimensions and inspiratory collapse. Device lead * A device lead was visualized in the right atrium and right ventricle. Consult Discharge Plan - Plan Referrals: Sebastian Ochoa DO [Primary Care Provider] - <Debbie Norris - Last Filed: 10/11/18 14:42> Hospitalist Progress Note - Encounter Date of Encounter: 10/11/18 - Exam Vitals: Temp Pulse Resp BP Pulse Ox 98.5 F 63 16 128/76 98 10/11/18 11:44 10/11/18 11:44 10/11/18 11:44 10/11/18 11:44 10/11/18 11:44 - Assessment and Plan (1) History of seizure Current Visit: Yes Status: Chronic (2) HTN (hypertension) Current Visit: Yes Status: Chronic (3) DVT prophylaxis Current Visit: Yes Status: Acute (4) Systolic CHF Current Visit: Yes Status: Chronic (5) Chest pain Current Visit: Yes Status: Resolved (6) Atrial fibrillation with RVR Current Visit: Yes Status: Resolved (7) Nonischemic cardiomyopathy Current Visit: Yes Status: Chronic - Time Spent with Patient Total time spent is greater than 50% in coordination of care (as documented) at patient's floor/unit and/or counseling patient: Internal Medicine: Result - Labs CBC & Chem 7: 10/11/18 03:56 10/11/18 03:56 Labs: Short CBC 10/11/18 Range/Units 03:56 WBC 6.0 (4.3-11.1) K/mcL Hgb 13.2 D (12.9-16.9) g/dL Hct 38.0 (37.5-50.1) % Plt Count 156 (140-400) K/mcL Neutrophils # 2.8 (1.6-8.9) K/mcL BMP 10/11/18 03:56 Sodium 139 Potassium 4.2 Chloride 107 Carbon Dioxide 25 BUN 16 Creatinine 0.86 Glucose 111 H Calcium 8.5 L Cardiac Enzymes 10/10/18 Range/Units 17:36 Troponin I < 0.03 (< 0.04) ng/mL - ABG Interpretation ABG results: PT/INR, D-dimer PT 35.4 Seconds (9.4-12.1) H 10/11/18 09:21 - Impressions Impressions Echocardiogram 10/11/18 09:00 Impressions: LVEF 50%. Low normal systolic function. Mild concentric left ventricular hypertrophy. Normal left ventricular diastolic function. Normal right ventricular structure and function. No significant valvular dysfunction. No pulmonary hypertension. Left Ventricular Wall Motion: Rest Echo Findings All wall segments showed normal motion. Findings: Study Quality * Technically adequate exam. ECG Findings * Normal sinus rhythm. Left Ventricle * LVEF 50%. Low normal systolic function. * Normal LV chamber size and function. * Mild concentric left ventricular hypertrophy. * Normal left ventricular diastolic function. Right Ventricle * Normal right ventricular structure and function. Left Atrium * Normal left atrial size. Right Atrium * Normal right atrial size. Interatrial Septum * Interatrial septum not well evaluated. * No evidence of PFO by color Doppler. Aortic Valve * Aortic valve not well visualized. * No aortic stenosis. * No aortic regurgitation. Mitral Valve * Normal mitral valve structure. * No mitral stenosis. * Trace mitral regurgitation. Tricuspid Valve * Normal tricuspid valve structure. * No tricuspid stenosis. * Trace tricuspid regurgitation. * Estimated RVSP is 28 mmHg. * Estimated RA pressure is 3 mmHg. * No pulmonary hypertension. Pulmonic Valve * Pulmonic valve is not well visualized. * No pulmonic stenosis. * No pulmonic regurgitation. Aorta * Normally sized aortic root. Pericardium * The pericardium appears normal. IVC * Normal IVC dimensions and inspiratory collapse. Device lead * A device lead was visualized in the right atrium and right ventricle. - Attending Attestation I examined this patient and my medical decision-making was reviewed with the Resident Physician Dr Ortiz. I agree with the documented findings, disposition and treatment plan as described except to the extent set forth below. Assumed care of patient 10/11/18 Mr Welch is being observed for episode afib rvr with associated chest pain, now both resolved with medication adjustments awake, alert, very pleasant and excellect historian. He has no cp and has had none or chest pressure with resolution of afib rvr. no palpitations, presyncope, sob, orthopnea or le edema. He was able to confirm all meds he is currently taking. awaiting cards eval. overall feeling improved gen- alert, awake,appears stated age cv- reg rate and rhythm, normal s1,s2, no murmurs appreciated, no jvd, no le edema lungs- ctabl, no wheezing, rhonchi or crackles, normal resp effort on ra neuro- AAOx3 Afib with RVR, resolved; now NSR- started on ccb gtt and transitioned ot oral by prior team, we have stopped this and resumed home coreg, uptitrate as needed, cont digoxin, coumadin (NOT eliquis as noted in h&P), cards eval pending as he follows with Dr Osorio CAD, stable Chronic systolic + Diastolic CHF,stable -not on asa at home (already dual therapy with coumadin + plavix), cont plavix, statin, BB, acei and bumex qMWF as he takes at home Seizure Hx- confirmed no longer taking phenytoin as listed in home meds, changed by Neuro (Dr Klein) to keppra + depakote further diagnoses and plan as noted by resident <Miguel Ortiz - Last Filed: 10/11/18 11:57> (1) Chest pain Qualifiers: Chest pain type: precordial pain Qualified Code(s): R07.2 - Precordial pain (4) HTN (hypertension) Qualifiers: Hypertension type: essential hypertension Qualified Code(s): I10 - Essential (primary) hypertension (5) Systolic CHF Qualifiers: Heart failure chronicity: chronic Qualified Code(s): I50.22 - Chronic systolic (congestive) heart failure <Debbie Norris - Last Filed: 10/11/18 14:42> (2) HTN (hypertension) Qualifiers: Hypertension type: essential hypertension Qualified Code(s): I10 - Essential (primary) hypertension (4) Systolic CHF Qualifiers: Heart failure chronicity: chronic Qualified Code(s): I50.22 - Chronic systolic (congestive) heart failure (5) Chest pain Qualifiers: Chest pain type: precordial pain Qualified Code(s): R07.2 - Precordial pain
[2018-10-11] MEDS: *HR* OxyCODONE Immed Rel 15 MG TABLET PO PRN ×2 (12:14→21:49)
--- NOTE | 2018-10-11 16:53 | Event Note ---
Date of Encounter: 10/11/18 Time of Encounter: 16:51 - Cardiology Event Note Attempted to see patient, however patient was in the shower. Chart reviewed. Cardiology consulted for a.fib RVR and chest pain. Per notes, chest pain resolved after resolution of a.fib RVR. Patient has known a.fib, on BB, digoxin, and coumadin at home. Pateint was started on cardizem drip. Patient has a known history of NICM, then recovered LVEF. With history of NICM, would not recommend CCB mcc. Discussed and reviewed with , who recommends stopping digoxin and increasing BB. Continue coumadin. Cardiology will attempt to see patient in am.
[2018-10-11] MEDS ORDERED: Warfarin perPT PO PRN (18:00)
[2018-10-11] MEDS ORDERED: *HR* Warfarin 5 MG TABLET PO ONE (18:00)
[2018-10-12] MEDS: levETIRAcetam 250 MG TABLET PO SCH (05:30)
[2018-10-12 05:47] LABS: INR 2.4; Prothrombin Time 26.8 Seconds (9.4-12.1)
[2018-10-12] MEDS ORDERED: Bumetanide 1 MG TABLET PO SCH ×2 (09:00)
[2018-10-12] MEDS ORDERED: Fenofibrate 54 MG TABLET PO SCH (09:00)
--- NOTE | 2018-10-12 09:47 | Cardiology Consult Note ---
<Bri Meza - Last Filed: 10/12/18 09:44> Date of Encounter: 10/12/18 Time of Encounter: 07:45 Assessment and Plan (1) Atrial fibrillation with RVR Status: Resolved Per cardiology: -Of note, attempted to see patient yesterday, however he was in the shower. -Admitted with a.fib RVR. Was given IV cardizem. Known history of a.fib. On dig and BB. -Now SR, HR controlled. -ON coumadin for anticoagulation. -Disussed with , will increase BB and stop dig. Do not recommend [facility] jail with history of NICM. -Cardiology will sign off, will arrange outpatient follow up. (2) Chest pain Status: Resolved Per cardiology: -Reported chest pain when a.fib RVR. -chest pain resolved when HR controlled. -Troponins negative. -No acute ischemic ECG changes. -TTE with LVEF 50%, no wall motion abnormalities (LVEF improved from previous). -Can consider outpatient stress test. -No futher inpatient cardiac work up warranted. Qualifiers: Chest pain type: unspecified Qualified Code(s): R07.9 - Chest pain, unspecified (3) Nonischemic cardiomyopathy Status: Chronic Per cardiology: -Known NICM, since recovered. -On BB, and stephanie inhibitor. -Euvolemic on exam. -Continue to follow with cardiology outpatient. Discussion w patient/family: The assessment and plan as outlined above was discussed with the patient who expressed understanding and agreement. All questions were answered. Thank you for involving us in the care of your patient. Please call with any questions. Discussed and reviewed with . History of Present Illness Consult date: 10/10/18 Requesting physician: Sarah Cisneros Consult reason: a.fib RVR Chief complaint: chest pain, palpitations History of present illness: Mr. Welch is a 53 year old male with a relevant past medical history of a.fib, NICM s/p ICD, sarcoidosis, HTN, seziures, RA, depression, PVC ablation who presented to [facility] with complaints of palpitations and chest pain. Pateint states symptoms started while laying in bed. Denies exertional componenet. Patient reports symptoms resovled after cardizem in ER. Denies current complaints. Denies chest pain, shortness of breath, or palpitations. Past Med Surg Social Fam HX - Past Medical History Attestation: Yes The following information was validated with the patient. Source: patient, old records reviewed Medical history: atrial fibrillation, cancer, cardiomyopathy, CHF, hypertension, RA, seizures, TIA Additional medical history: ICD, (cancerious polyps) Psychiatric history: depression - Past Surgical History Surgical History: pacemaker/AICD, other Additional surgical history: colonoscopy 10/2017 w/ polyp removal, abdominal cyst removal, thoracotomy, pericardial window, septal repair, tonsillectomy - Social History Smoking Status: Former smoker Smokeless Tobacco Status: No Alcohol use: none Drug use: none - Family History Father Hx Family Cardiac Disorders: Yes Hx Family Cancer: Yes Mother Hx Family Cancer: Yes Brother Living Status: Hx Family Cardiac Disorders: Yes ([place]) Medications and Allergies Buspirone HCl [Buspar] 10 mg PO BID 11/06/17 [History] Finasteride [Proscar] 5 mg PO DAILY 11/06/17 [History] Fluticasone Propionate Nasal [Flonase] 2 spr NS BID 11/06/17 [History] Lisinopril [Zestril] 5 mg PO DAILY 11/06/17 [History] Nitroglycerin [Nitrostat] 0.4 mg SL Q5M PRN 11/06/17 [History] Oxycodone HCl 15 mg PO Q6H 11/06/17 [History] Tamsulosin [Flomax] 0.4 mg PO DAILY 11/06/17 [History] Triamcinolone Acet 0.1% CRM [Kenalog] 1 appl TP QID 11/06/17 [History] Warfarin [Coumadin] 5 mg PO SUTUTHSA@1800 11/06/17 [History] Divalproex (12 HR) [Depakote (12 HR)] 1,000 mg PO HS #30 tablet. 01/07/18 [Rx] Divalproex (12 HR) [Depakote (12 HR)] 500 mg PO QAM #30 tablet. 01/07/18 [Rx] Bumetanide [Bumex] 1 mg PO 3XW 02/03/18 [History] LevETIRAcetam [Keppra] 500 mg PO BID 10/10/18 [History] Carvedilol [Coreg] 12.5 mg PO BIDWM 14 Days #28 tablet 10/12/18 [Rx] Pravastatin Sodium [Pravachol] 40 mg PO HS #1 tablet 10/12/18 [Rx] Warfarin Sodium 2.5 mg PO MOWEFR@1800 10/12/18 [History] Allergy/AdvReac Type Severity Reaction Status Date / Time No Known Allergies Allergy Verified 03/10/18 16:50 All Systems Review: The remainder of the systems were reviewed and are negative - Cardiovascular Cardiovascular: as per HPI, chest pain at rest, palpitations Physical Examination Vital Signs, Last 4 Hours Temp Pulse Resp BP Pulse Ox 10/12/18 09:00 95 10/12/18 07:24 97.7 F 52 16 141/68 95 General: Conversant, No Apparent Distress HEENT: Atraumatic, Normocephaly, Mucus Membranes Moist Neck: No JVD, Normal carotid pulses Cardiac: Reg Rate and Rhythm, Normal S1 and S2, No Murmur Lungs: Normal Breath Sounds, No Wheeze, Rales, Rhonchi Neuro: Alert and responsive, No focal deficits noted Abdomen: Soft, Non-Tender Skin: No rashes noted on visualized skin Musculoskeletal: No Chest Wall Tenderness Extremities: No Clubbing, No Cyanosis, No Edema, Normal Pulses Results 10/11/18 03:56 10/11/18 03:56 Lab Results Impressions Echocardiogram 10/11/18 09:00 Impressions: LVEF 50%. Low normal systolic function. Mild concentric left ventricular hypertrophy. Normal left ventricular diastolic function. Normal right ventricular structure and function. No significant valvular dysfunction. No pulmonary hypertension. Left Ventricular Wall Motion: Rest Echo Findings All wall segments showed normal motion. Findings: Study Quality * Technically adequate exam. ECG Findings * Normal sinus rhythm. Left Ventricle * LVEF 50%. Low normal systolic function. * Normal LV chamber size and function. * Mild concentric left ventricular hypertrophy. * Normal left ventricular diastolic function. Right Ventricle * Normal right ventricular structure and function. Left Atrium * Normal left atrial size. Right Atrium * Normal right atrial size. Interatrial Septum * Interatrial septum not well evaluated. * No evidence of PFO by color Doppler. Aortic Valve * Aortic valve not well visualized. * No aortic stenosis. * No aortic regurgitation. Mitral Valve * Normal mitral valve structure. * No mitral stenosis. * Trace mitral regurgitation. Tricuspid Valve * Normal tricuspid valve structure. * No tricuspid stenosis. * Trace tricuspid regurgitation. * Estimated RVSP is 28 mmHg. * Estimated RA pressure is 3 mmHg. * No pulmonary hypertension. Pulmonic Valve * Pulmonic valve is not well visualized. * No pulmonic stenosis. * No pulmonic regurgitation. Aorta * Normally sized aortic root. Pericardium * The pericardium appears normal. IVC * Normal IVC dimensions and inspiratory collapse. Device lead * A device lead was visualized in the right atrium and right ventricle. Active Medications Atorvastatin Calcium (Lipitor) 10 mg PO HS [facility] Stop: 04/11/19 21:01 Last Admin: 10/11/18 21:42 Dose: 10 mg Bumetanide (Bumex) 1 mg PO QMWF [facility] Stop: 04/13/19 09:01 Buspirone HCl (Buspar) 10 mg PO TID PRN PRN Reason: Anxiety Stop: 04/11/19 16:23 Carvedilol (Coreg) 12.5 mg PO BIDWM [facility]; Protocol Stop: 04/12/19 17:01 Last Admin: 10/11/18 17:31 Dose: 12.5 mg Divalproex Sodium (Depakote (12 Hr)) 500 mg PO QAM [facility] Stop: 04/12/19 09:01 Last Admin: 10/11/18 08:08 Dose: 500 mg Divalproex Sodium (Depakote (12 Hr)) 1,000 mg PO HS [facility] Stop: 04/11/19 21:01 Last Admin: 10/11/18 21:42 Dose: 1,000 mg Fenofibrate (Tricor) 162 mg PO DAILY [facility]; Protocol Stop: 04/13/19 09:01 Finasteride (Proscar) 5 mg PO DAILY [facility]; Protocol Stop: 04/12/19 09:01 Last Admin: 10/11/18 08:07 Dose: 5 mg Levetiracetam (Keppra) 500 mg PO Q12HR [facility] Stop: 04/12/19 06:01 Last Admin: 10/12/18 05:30 Dose: 500 mg Lisinopril (Zestril) 5 mg PO DAILY [facility]; Protocol Stop: 04/12/19 09:01 Last Admin: 10/11/18 08:08 Dose: 5 mg Nitroglycerin (Nitroglycerin) 0.4 mg SL Q5MIN PRN PRN Reason: Chest Pain Stop: 04/11/19 11:38 Last Admin: 10/10/18 11:59 Dose: 0.4 mg Oxycodone HCl (Roxicodone) 15 mg PO Q6HR PRN; Protocol PRN Reason: Pain Stop: 04/12/19 11:06 Last Admin: 10/11/18 21:49 Dose: 15 mg Tamsulosin HCl (Flomax) 0.4 mg PO DAILY [facility]; Protocol Stop: 04/12/19 09:01 Last Admin: 10/11/18 08:08 Dose: 0.4 mg Warfarin Sodium (Coumadin Perpt) 1 each PO DAILY@1800 PRN PRN Reason: SEE COMMENTS Stop: 04/12/19 18:01 Laboratory Tests 10/10/18 10/10/18 10/11/18 10:57 17:36 03:56 INR Creatinine 0.86 Troponin I < 0.03 < 0.03 10/12/18 04:58 INR 2.4 Creatinine Troponin I - Imaging and Cardiology Chest Xray: report reviewed Echo: report reviewed Cardiac cath: report reviewed - EKG Interpretation EKG results cardiology: personally reviewed (ECG with lucian RVR.), other (Telemetry reviewed with average HR previous 12 hours noted to be 56, SB. PVCs n oted.) Consult Discharge Plan - Plan Instructions: Chest Pain (DC), Chest Pain (GEN) Referrals: Sebastian Ochoa DO [Primary Care Provider] - (Unable to make appointment due to office being closed for holiday. Please schedule an appointment within 7- 10 days.) Pedro Osorio DO [Partnered Physician] - (Office will call with follow up appointment.) Prescriptions: Carvedilol [Coreg] 12.5 mg PO BIDWM 14 Days #28 tablet Pravastatin Sodium [Pravachol] 40 mg PO HS #1 tablet <Molly Arreaga - Last Filed: 10/12/18 18:32> Date of Encounter: 10/12/18 - Attending Attestation Patient was seen and evaluated independently by me. Findings, assessment and plan were discussed at length with patient, questions answered. Agree with nurse practitioner's/resident's documentation. Addition as follows, 53yo CM ho PAF, NICMP s/p Sub-Q ICD, sarcoidisis, HTN. P/w palpitations with cp at rest. In Afib RVR , converted to SR after cardizem iv in ED. Trop negative, TTE EF 50%. Euvolemia on exam, HR>60, BP ok. A: Afib RVR, PAF, on warfarin, digoxin and coreg NICMP, ICD P: d/c digoxin up coreg to 12.5 bid f/u cardiology clinic Molly Arreaga MD, PhD Assessment and Plan Discussion w patient/family: The assessment and plan as outlined above was discussed with the patient and/or family members who expressed understanding and agreement. All questions were answered. Thank you for involving us in the care of your patient. Please call with any questions. History of Present Illness History of present illness: Mr. Welch is a 53 year old male All Systems Review: The remainder of the systems were reviewed and are negative Results 10/11/18 03:56 10/11/18 03:56 Lab Results 10/12/18 04:58 INR 2.4
[2018-10-12 10:59] VITALS: BP 129/72
[2018-10-12] MEDS: Finasteride 5 MG TABLET PO SCH (11:05)
[2018-10-12] MEDS: Divalproex (12 HR) 500 MG TABLET PO SCH (11:05)
--- NOTE | 2018-10-12 12:32 | Discharge Summary ---
<Debbie Norris - Last Filed: 10/12/18 13:23> - NOTES TO OUTPATIENT PROVIDER Notes to Outpatient Provider: (Please disregard statin notation, he may cont home statin as prescribed, it is NOT discontinued. He is no longer taking Phenytoin as instructed by his Neurologist- this med has been stopped in med rec for that reason as it was entered as home med in error) Orders not resulted at time of discharge: Pending orders 10/13/18 04:00 INR/PT [Prothrombin Time INR] [COAG] AM 0400 10/14/18 04:00 INR/PT [Prothrombin Time INR] [COAG] AM 0400 10/15/18 04:00 INR/PT [Prothrombin Time INR] [COAG] AM 0400 10/16/18 04:00 INR/PT [Prothrombin Time INR] [COAG] AM 0400 Date of Encounter: 10/12/18 - Discharge Diagnosis (1) History of seizure Status: Chronic (2) HTN (hypertension) Status: Chronic Qualifiers: Hypertension type: essential hypertension Qualified Code(s): I10 - Essential (primary) hypertension (3) DVT prophylaxis Status: Acute (4) Systolic CHF Status: Chronic Qualifiers: Heart failure chronicity: chronic Qualified Code(s): I50.22 - Chronic systolic (congestive) heart failure (5) Chest pain Status: Resolved Qualifiers: Chest pain type: unspecified Qualified Code(s): R07.9 - Chest pain, unspecified (6) Atrial fibrillation with RVR Status: Resolved (7) Nonischemic cardiomyopathy Status: Chronic Hospital course: Mr. Welch is a 53 year old male - Time Spent with Patient Total time spent providing and/or coordinating discharge services: Greater than 30 minutes (45 min) - Discharge Medications Prescriptions: Carvedilol [Coreg] 12.5 mg PO BIDWM 14 Days #28 tablet Pravastatin Sodium [Pravachol] 40 mg PO HS #1 tablet Home Medications: Buspirone HCl [Buspar] 10 mg PO BID 11/06/17 [History] Finasteride [Proscar] 5 mg PO DAILY 11/06/17 [History] Fluticasone Propionate Nasal [Flonase] 2 spr NS BID 11/06/17 [History] Lisinopril [Zestril] 5 mg PO DAILY 11/06/17 [History] Nitroglycerin [Nitrostat] 0.4 mg SL Q5M PRN 11/06/17 [History] Oxycodone HCl 15 mg PO Q6H 11/06/17 [History] Tamsulosin [Flomax] 0.4 mg PO DAILY 11/06/17 [History] Triamcinolone Acet 0.1% CRM [Kenalog] 1 appl TP QID 11/06/17 [History] Warfarin [Coumadin] 5 mg PO SUTUTHSA@1800 11/06/17 [History] Divalproex (12 HR) [Depakote (12 HR)] 1,000 mg PO HS #30 tablet. 01/07/18 [Rx] Divalproex (12 HR) [Depakote (12 HR)] 500 mg PO QAM #30 tablet. 01/07/18 [Rx] Bumetanide [Bumex] 1 mg PO 3XW 02/03/18 [History] LevETIRAcetam [Keppra] 500 mg PO BID 10/10/18 [History] Carvedilol [Coreg] 12.5 mg PO BIDWM 14 Days #28 tablet 10/12/18 [Rx] Pravastatin Sodium [Pravachol] 40 mg PO HS #1 tablet 10/12/18 [Rx] Warfarin Sodium 2.5 mg PO MOWEFR@1800 10/12/18 [History] Allergies/Adverse Reactions: Allergy/AdvReac Type Severity Reaction Status Date / Time No Known Allergies Allergy Verified 03/10/18 16:50 Date of admission: 10/10/18 13:27 Primary care physician: Sebastian Ochoa DO Consults: 10/10/18 16:41 Consult to Cardiology [CONS] Routine Comment: Consulting Provider: Cardiology Lynsey Reason for Consult: A.fib with RVR, chest pain, hx CAD with defib Call Completed: No - Constitutional Vitals: Temp Pulse Resp BP Pulse Ox 97.7 F 53 16 129/72 98 10/12/18 10:58 10/12/18 10:58 10/12/18 10:58 10/12/18 10:58 10/12/18 10:58 - Patient Status Disposition: Home, Self-Care Condition: Fair - Discharge Instructions Instructions: Chest Pain (DC), Chest Pain (GEN) Follow Up With: Sebastian Ochoa DO [Primary Care Provider] - (Unable to make appointment due to office being closed for holiday. Please schedule an appointment within 7- 10 days.) Pedro Osorio DO [Partnered Physician] - (Office will call with follow up appointment.) - Attending Attestation I examined this patient and my medical decision-making was reviewed with the Resident Physician Dr Chris. I agree with the documented findings, disposition and treatment plan as described except to the extent set forth below. Assumed care of patient 10/11/18 Mr Welch was being observed for episode afib rvr with associated chest pain, now both resolved with medication adjustments. He is discharging to home in stable condition with cards fu awake, alert, no complaints. no cp, pressure, sob, palpitations or presyncope. no le edema or orthopnea. dc plan discussed will dc to home with cessation of digoxin and uptitration of coreg. ALL OTHER MEDS STAY THE SAME despite what is previously documented by resident gen- alert, awake,appears stated age cv- reg rate and rhythm, normal s1,s2, no murmurs appreciated, no jvd, no le edema lungs- ctabl, no wheezing, rhonchi or crackles, normal resp effort on ra neuro- AAOx3 Afib with RVR, resolved; now NSR-new dose coreg cont on dc, stop digoxin as per cards, fu outpt with Dr Osorio CAD, stable Chronic systolic + Diastolic CHF,stable -not on asa at home (already dual therapy with coumadin + plavix), cont plavix, HOME statin pravastatin (as it dropped off home med rec it was ordered again on dc so that med rec is accurate, does not require rx), BB, acei and bumex qMWF as he takes at home Seizure Hx- confirmed no longer taking phenytoin as listed in home meds, changed by Neuro (Dr Klein) to keppra + depakote further diagnoses and plan as noted by resident <Ni Chris - Last Filed: 10/12/18 17:57> - NOTES TO OUTPATIENT PROVIDER Notes to Outpatient Provider: Mr. Welch presented to the ED complaining of heart palpitations. Has history of A. fib and hadhis pacemaker defibrillator removed earlier this year. The ED EKG showed A. fib with RVR he was started on Cardizem drip. Cardiology was consulted. They recommended stopping digoxin and increasing the dose of beta polo. Cardiology advised against using calcium channel polo due to history of nonischemic cardiomyopathy. His A. fib and symptoms have resolved since his admission. He will follow-up with cardiology outpatient. He will be discharged with 2 week supply of carvedilol. And his antilipid medication was changed to atorvastatin 10 mg. Orders not resulted at time of discharge: Pending orders 10/13/18 04:00 INR/PT [Prothrombin Time INR] [COAG] AM 0400 10/14/18 04:00 INR/PT [Prothrombin Time INR] [COAG] AM 0400 10/15/18 04:00 INR/PT [Prothrombin Time INR] [COAG] AM 0400 10/16/18 04:00 INR/PT [Prothrombin Time INR] [COAG] AM 0400 Date of Encounter: 10/12/18 Time of Encounter: 12:49 - Discharge Diagnosis (1) Atrial fibrillation with RVR Priority: Primary Status: Resolved (2) HTN (hypertension) Priority: Secondary Status: Chronic Qualifiers: Hypertension type: essential hypertension Qualified Code(s): I10 - Essential (primary) hypertension (3) History of seizure Priority: Secondary Status: Chronic (4) Systolic CHF Priority: Secondary Status: Chronic Qualifiers: Heart failure chronicity: chronic Qualified Code(s): I50.22 - Chronic systolic (congestive) heart failure (5) Chest pain Priority: Secondary Status: Resolved Qualifiers: Chest pain type: unspecified Qualified Code(s): R07.9 - Chest pain, unspecified (6) Nonischemic cardiomyopathy Priority: Secondary Status: Chronic (7) DVT prophylaxis Priority: Secondary Status: Acute Hospital course: Mr. Welch is a 53 year old male past medical history of A. fib, CAD on home eliquis presented to the ED complaining of heart palpitations. Has history of A. fib and had his pacemaker defibrillator removed earlier this year. The ED EKG showed A. fib with RVR he was started on Cardizem drip. Cardiology was consulted. They recommended stopping digoxin and increasing the dose of beta polo. Cardiology advised against using calcium channel polo due to history of nonischemic cardiomyopathy. He had an echo which showed EF 50% with low normal systolic function and mild concentric left ventricular hypertrophy. His A. fib and symptoms have resolved since his admission. He will follow-up with cardiology outpatient. He will be discharged with 2 week supply of carvedilol. And his antilipid medication was changed to atorvastatin 10 mg. Discharge discussed with: patient - Time Spent with Patient Total time spent providing and/or coordinating discharge services: Date of admission: 10/10/18 13:27 Primary care physician: Sebastian Ochoa, Consults: 10/10/18 16:41 Consult to Cardiology [CONS] Routine Comment: Consulting Provider: Cardiology Lynsey Reason for Consult: A.fib with RVR, chest pain, hx CAD with defib Call Completed: No Discharging clinician: Ni Chris Anticipated date of discharge: 10/12/18 - Constitutional Vitals: Temp Pulse Resp BP Pulse Ox 97.7 F 53 16 129/72 98 10/12/18 10:58 10/12/18 10:58 10/12/18 10:58 10/12/18 10:58 10/12/18 10:58 General appearance: Present: A&O X 3, pleasant, no acute distress Exam: General: pleasant, without distress Cardiovascualr: Regular rate and rhythm with no murmur, absent gallops or rubs, absent pedal edema, radial pulses 2 out of 4 Lungs: Clear to auscultation bilaterally, not in respiratory distress Abdomen: Soft nontender, nondistended positive bowel sounds, absent hepatomegaly Skin: warm and dry, absent rash, absent open wounds and nodules MSK: absent clubbing, cyanosis, joints without swelling Neuro: Alert oriented 3 Psych: good insight and judgment - Head Head exam: Present: atraumatic, normocephalic - Eye Eye exam: Present: EOMI, normal appearance, sclera anicteric - ENT ENT exam: Present: mucous membranes moist - Neck Neck exam general surgery: Present: full ROM, normal inspection, trachea midline - Respiratory Respiratory exam: Present: CTAB. Absent: rhonchi, stridor, wheezes - Cardiovascular Cardiovascular exam: Present: RRR, +S1, +S2 - GI/Abdominal GI/Abdominal exam: Present: normal bowel sounds, soft. Absent: distended, firm - Extremities Exam Extremities exam: Present: full ROM, warm. Absent: pedal edema - Psychiatric Psychiatric exam: Present: normal affect, normal mood - Skin Skin exam: Present: intact, warm - Patient Status Functional capacity at discharge: independent ambulation Overall status at discharge: patient is progressing back to baseline - Diet and Activity Activity: increase activity as tolerated Diet: low fat, low cholesterol
[2018-10-12] MEDS ORDERED: *HR* Warfarin 2.5 MG TABLET PO ONE (18:00)
--- NOTE | 2018-10-14 09:20 | Electrocardiograph Report ---
[address] [address] Test Date: 2018-10-10 Pat Name: Montana Welch Department: EXAMC4 Room: 3B Gender: M Porcelain Buildup Assistant: : [id number] Requested By: Rudi Camejo Order Number: [id number] Reading MD: Raffi Rodriguez Measurements Intervals [place] Rate: 140 P: [place]: QRS: 63 QRSD: 102 T: 71 QT: 307 QTc: 469 Interpretive Statements Atrial fibrillation Left ventricular hypertrophy Electronically Signed On 10-14-2018 9:18:44 EST by Raffi Rodriguez
--- NOTE | 2018-10-14 09:22 | Electrocardiograph Report ---
[address] [address] Test Date: 2018-10-10 Pat Name: Montana Welch Department: EXAMC4 Room: 3B Gender: M Senior Software Test Engineer: : [id number] Requested By: Duke Aguayo Order Number: [id number] Reading MD: Raffi Rodriguez Measurements Intervals [place] Rate: 123 P: [place]: QRS: 33 QRSD: 100 T: 91 QT: 300 QTc: 430 Interpretive Statements Atrial fibrillation Probable left ventricular hypertrophy Nonspecific T abnormalities, lateral leads Electronically Signed On 10-14-2018 9:21:03 EST by Raffi Rodriguez
--- NOTE | 2018-10-14 09:23 | Electrocardiograph Report ---
[address] [address] Test Date: 2018-10-10 Pat Name: Montana Welch Department: EXAMC4 Room: 3B Gender: M General Ophthalmologist: : 1965 Requested By: Duke Aguayo Order Number: [id number] Reading MD: Raffi Rodriguez Measurements Intervals [place] Rate: 154 P: [place]: QRS: 40 QRSD: 101 T: 65 QT: 304 QTc: 487 Interpretive Statements Atrial fibrillation Probable left ventricular hypertrophy Borderline prolonged QT interval Electronically Signed On 10-14-2018 9:21:46 EST by Raffi Rodriguez
== END 2018-10-12 13:56 | disposition home or self-care (01) ==
LOC: 3BNU 10:28 → EMEROOARM 10:28 → 3BNU 14:18
PROVIDERS: ADMIT Internal Medicine; ATTEND Internal Medicine